=== PATIENT | female | born 1960 | race Caucasian/White ===

== ENCOUNTER 2017-06-21 16:49 | Emergency (ER) | payer OTHER | END 2017-06-21 18:16 | disposition home or self-care (01) | LOC: JERFT 16:49 | PROC: 3E0F7GC Introduction of Other Therapeutic Substance into Respiratory Tract, Via Natural or Artificial Opening (ICD-10-PCS; principal; 2017-06-21) | CPT/HCPCS: 99281-25; J7620 ==

== ENCOUNTER 2018-02-20 19:44 | Emergency (ER) | payer OTHER ==
[2018-02-20 19:59] VITALS: BP 149/84; PULSE 69; TEMP 97.9; BMI 22.6
[2018-02-20] MEDS ORDERED: predniSONE 20 MG TABLET (UD) PO ONE (21:48)
--- NOTE | 2018-02-20 21:48 | PDOC ---
History of Present Illness - General Chief Complaint: Asthma Stated Complaint: S.O.B Time Seen by Provider: 02/20/18 21:29 History Source: Patient - History of Present Illness Initial Comments: 02/20/18 22:38 57 year old female Wheezing and cough for 2 days frequently using asthma pump at home with no relief in wheezing. Denies fevers/chills, NVD, abdominal pain, urinary symptoms Past History - Past Medical History Allergies/Adverse Reactions: Allergies Allergy/AdvReac Type Severity Reaction Status Date / Time Penicillins Allergy Verified 02/20/18 19:59 Home Medications: Ambulatory Orders Albuterol Sulfate Inhaler - [Ventolin HFA Inhaler -] 2 inh IH Q4H PRN #1 inh Albuterol Sulfate Inhaler - [Ventolin HFA Inhaler -] 1 - 2 inh PO Q4H #1 inhaler 02/20/18 Prednisone [Prednisone 50 MG TABLETS] 50 mg PO DAILY #4 tablet 02/20/18 Asthma: Yes CVA: No COPD: No DVT: No - Immunization History Immunization Up to Date: Yes - Suicide/Smoking/Psychosocial Hx Smoking Status: No Smoking History: Never smoked Number of Cigarettes Smoked Daily: 0 Hx Alcohol Use: No Drug/Substance Use Hx: No Substance Use Type: None *Physical Exam - Vital Signs Last Vital Signs Temp Pulse Resp BP Pulse Ox 97.9 F 69 18 149/84 97 02/20/18 19:56 02/20/18 19:56 02/20/18 19:56 02/20/18 19:56 02/20/18 19:56 - Physical Exam General Appearance: Yes: Appropriately Dressed Respiratory/Chest: positive: Wheezing Moderate Sedation - Procedure Monitoring Vital Signs: Procedure Monitoring Vital Signs Temperature 97.9 F 02/20/18 19:56 Pulse Rate 69 02/20/18 19:56 Respiratory Rate 18 02/20/18 19:56 Blood Pressure 149/84 02/20/18 19:56 O2 Sat by Pulse Oximetry (%) 97 02/20/18 19:56 Medical Decision Making - Medical Decision Making 02/20/18 22:47 improved aeration *DC/Admit/Observation/Transfer Diagnosis at time of Disposition: Asthma exacerbation Qualifiers: Asthma severity: mild Asthma persistence: intermittent Qualified Code(s): J45.21 - Mild intermittent asthma with (acute) exacerbation - Discharge Dispostion Disposition: HOME - Prescriptions Prescriptions: Albuterol Sulfate Inhaler - [Ventolin HFA Inhaler -] 1 - 2 inh PO Q4H #1 inhaler Prednisone [Prednisone 50 MG TABLETS] 50 mg PO DAILY #4 tablet - Referrals Referrals: Rach Ken [Primary Care Provider] - - Patient Instructions Printed Discharge Instructions: Asthma -- Adult Additional Instructions: you albuterol inhaler as prescribed take prednisone starting tomorrow Additional Instructions: * Please call your personal physician to report your Emergency Department visit and to report your progress, if any. * If there is no improvement in symptoms in 2 days call your physician. * Return to the Emergency Department for any worsening symptoms. - Post Discharge Activity
[2018-02-20] MEDS ORDERED: ALBUTEROL SO4 2.5/IPRATROPIUM 0.5 INH SOL 3 ML VIAL.NEB. NEB ONE (21:52)
[2018-02-20] MEDS ORDERED: predniSONE 20 MG TABLET (UD) ONE (21:52)
[2018-02-20] MEDS: ALBUTEROL SO4 2.5/IPRATROPIUM 0.5 INH SOL 3 ML VIAL.NEB. NEB SCH ×4 (21:55→22:48)
== END 2018-02-20 23:01 | disposition home or self-care (01) ==
LOC: JERFT 19:44
DX: J45.21 Mild intermittent asthma with (acute) exacerbation (principal)
CPT/HCPCS: 99281-25

== ENCOUNTER 2018-11-11 00:25 | Emergency (ER) | payer OTHER ==
[2018-11-11 01:05] VITALS: TEMP 98; BMI 21.9
[2018-11-11] MEDS ORDERED: ALBUTEROL SO4 2.5/IPRATROPIUM 0.5 INH SOL 3 ML VIAL.NEB. NEB ONE ×2 (01:09→01:15)
--- NOTE | 2018-11-11 01:15 | PDOC ---
Attending Attestation - Resident Resident Name: Katie Morales S - ED Attending Attestation I have performed the following: I have examined & evaluated the patient, The case was reviewed & discussed with the resident, I agree w/resident's findings & plan - HPI HPI: 11/11/18 01:25 see resident hpi - Physicial Exam PE: 11/11/18 01:25 GENERAL: mild dsitress HEAD: No signs of trauma NECK: Normal ROM, LUNGS:. inc work of breathing with exp wheezing b/l HEART: Regular rate and rhythm, ABDOMEN: Soft, nondistended CHEST WALL: NEUROLOGICAL: Alert, SKIN: Warm, Dry - Medical Decision Making 11/11/18 01:27 58-year-old female with history of asthma now wheezing Steroids and DuoNeb's administered Plan for chest x-ray labs EKG and observation
[2018-11-11] MEDS ORDERED: predniSONE 20 MG TABLET (UD) PO ONE (01:20)
[2018-11-11] MEDS ORDERED: predniSONE 20 MG TABLET (UD) ONE (01:22)
--- NOTE | 2018-11-11 01:36 | PDOC ---
History of Present Illness - General Chief Complaint: Asthma Stated Complaint: ASTHMA Time Seen by Provider: 11/11/18 01:14 - History of Present Illness Initial Comments: 11/11/18 01:31 58 y/o/f here with PMHx of asthma here for SOB that started this afternoon. Patient states she had a similar episode last week and her PCP Dr. Ken prescribed 5 days of Prednisone which she completed on Thursday. She states she has many allergies and sometimes gets an asthma flareup. She used her Ventolin inhaler at home without significant improvement. She denies any chest pain, abd pain, fever, cough, dysuria, or other symptoms. Patient denies ever being admitted for asthma exacerbation and denies any history of intubation. PMHx: asthma SHx: Hysterectomy, sinus surgery 10 years ago Social: denies alcohol and tobacco use Past History - Past Medical History Allergies/Adverse Reactions: Allergies Allergy/AdvReac Type Severity Reaction Status Date / Time Penicillins Allergy Verified 11/11/18 01:04 Home Medications: Ambulatory Orders Albuterol Sulfate Inhaler - [Ventolin HFA Inhaler -] 2 inh IH Q4H PRN #1 inh Albuterol Sulfate Inhaler - [Ventolin HFA Inhaler -] 1 - 2 inh PO Q4H #1 inhaler 02/20/18 Prednisone [Prednisone 50 MG TABLETS] 50 mg PO DAILY #4 tablet 02/20/18 predniSONE [Deltasone -] 40 mg PO DAILY #5 tablet 11/11/18 Asthma: Yes CVA: No COPD: No DVT: No - Immunization History Immunization Up to Date: Yes - Suicide/Smoking/Psychosocial Hx Smoking Status: No Smoking History: Never smoked Number of Cigarettes Smoked Daily: 0 Hx Alcohol Use: No Drug/Substance Use Hx: No Substance Use Type: None Review of Systems - Review of Systems Constitutional: No: Chills, Fever HEENTM: No: Nose Congestion Respiratory: Yes: Shortness of Breath, Wheezing Cardiac (ROS): No: Chest Pain, Lightheadedness ABD/GI: No: Diarrhea, Nausea, Vomiting : No: Dysuria Musculoskeletal: No: Back Pain Integumentary: No: Rash Neurological: No: Headache, Dizziness Endocrine: No: Excessive Sweating *Physical Exam - Vital Signs Last Vital Signs Temp Pulse Resp BP Pulse Ox 98.0 F 74 22 H 157/80 96 11/11/18 01:03 11/11/18 01:03 11/11/18 01:03 11/11/18 01:03 11/11/18 01:03 - Physical Exam General Appearance: Yes: Nourished, Appropriately Dressed, Mild Distress HEENT: positive: EOMI, HEYDI, Normal Voice, Symmetrical Neck: positive: Trachea midline, Supple. negative: Lymphadenopathy (R), Lymphadenopathy (L) Respiratory/Chest: positive: Wheezing (wheezing bilaterally) Cardiovascular: positive: Regular Rhythm, Regular Rate, S1, S2 Gastrointestinal/Abdominal: positive: Soft. negative: Distended, Guarding Extremity: positive: Normal Capillary Refill Integumentary: positive: Normal Color Neurologic: positive: Fully Oriented, Alert, Motor Strength 06/27 ED Treatment Course - LABORATORY CBC & Chemistry Diagram: 11/11/18 01:50 11/11/18 01:50 - RADIOLOGY Radiology Studies Ordered: Category Date Time Status CHEST PA & LAT [RAD] Stat Radiology 11/11/18 01:27 Ordered - Medications Given in the ED: ED Medications Discontinued Medications Generic Name Dose Route Start Last Admin Trade Name Joe PRN Reason Stop Dose Admin Albuterol/Ipratropium 3 amp 11/11/18 01:09 11/11/18 01:20 Duoneb - NEB 11/11/18 01:10 3 amp ONCE ONE Administration Prednisone 60 mg 11/11/18 01:20 11/11/18 01:26 Deltasone - PO 11/11/18 01:21 60 mg ONCE ONE Administration Medical Decision Making - Medical Decision Making 11/11/18 01:43 -58 y/o/f here with PMHx of asthma here for SOB that started this afternoon. Patient states she had a similar episode last week and her PCP Dr. Ken prescribed 5 days of Prednisone which she completed on Thursday. -Workup with CBC, CMP, trops, CXR, EKG. -3 amps of duonebs and 60mg of Prednisone given for symptom management. -Patient feeling better after initial duoneb. wheezing decreased on exam. 11/11/18 02:01 -On reassessment patient is feeling much better. Minimal wheezing heard on both lung bases. -EKG reviewed, normal sinus rhythm. No acute ischemic changes. 11/11/18 02:25 -CXR reviewed, no acute pathology noted. -Albuterol nebulizer ordered for further improvement in wheezing. -Will likely discharge patient after reassessment. 11/11/18 02:35 -Patient no longer wheezing on exam and states that she feels much better. -Will discharge patient home with prescription of prednisone for 5 days and follow up instructions. *DC/Admit/Observation/Transfer Diagnosis at time of Disposition: Asthma exacerbation Qualifiers: Asthma severity: moderate Asthma persistence: unspecified Qualified Code(s): J45.901 - Unspecified asthma with (acute) exacerbation - Discharge Dispostion Disposition: HOME Condition at time of disposition: Improved - Prescriptions Prescriptions: predniSONE [Deltasone -] 40 mg PO DAILY #5 tablet - Referrals Referrals: Rach Ken [Primary Care Provider] - - Patient Instructions Printed Discharge Instructions: Asthma -- Adult Additional Instructions: If you worsening difficulty breathing, chest pain, fever, shortness of breath or other concerning symptoms please return to the ER. Please follow up with your primary care doctor within the next week. Please milk pickup driver your prescription and take as directed. Print Language: WELSH - Post Discharge Activity
[2018-11-11 01:58] LABS: HEMATOCRIT 40.3 % (32.4-45.2); HEMOGLOBIN 13.2 GM/dL (10.7-15.3); MCH 27.6 pg (25.7-33.7); MCHC 32.6 g/dl (32.0-36.0); MEAN CELL VOLUME 84.4 fl (80-96); MEAN PLT VOLUME 7.8 fl (7.5-11.1); PLATELET COUNT 288 K/MM3 (134-434); RBC 4.77 M/mm3 (3.60-5.2); RDW 14.1 % (11.6-15.6); WHITE BLOOD COUNT 9.6 K/mm3 (4.0-10.0)
[2018-11-11] MEDS ORDERED: ALBUTEROL SO4 0.083% IH SOL 2.5 MG/3 ML VIAL.NEB. NEB ONE ×2 (02:17→02:18)
[2018-11-11 02:19] LABS: ALBUMIN 3.9 g/dl (3.4-5.0); BILIRUBIN,TOTAL 0.3 mg/dL (0.2-1); BLOOD UREA NITROGEN 20.2 mg/dL (7-18); CREATININE 0.8 mg/dL (0.55-1.3); POTASSIUM 3.9 mmol/L (3.5-5.1)
[2018-11-11 02:41] VITALS: BP 123/65; PULSE 79
--- NOTE | 2018-11-11 14:04 | EKG ---
Test Reason : Blood Pressure : / mmHG Vent. Rate : 070 BPM Atrial Rate : 070 BPM P-R Int : 136 ms QRS Dur : 068 ms QT Int : 424 ms P-R-T Axes : 072 056 032 degrees QTc Int : 457 ms NORMAL SINUS RHYTHM NORMAL ECG WHEN COMPARED WITH ECG OF 14-JAN-2012 07:34, NO SIGNIFICANT CHANGE WAS FOUND Confirmed by MAGEN CODY MD ([id number]) on 11/11/2018 2:03:47 PM Referred By: Confirmed By:MAGEN CODY MD
== END 2018-11-11 02:55 | disposition home or self-care (01) ==
LOC: JER 00:25
PROC: 3E0F7GC Introduction of Other Therapeutic Substance into Respiratory Tract, Via Natural or Artificial Opening (ICD-10-PCS; principal; 2018-11-11)
PROC: 3E0F7GC Introduction of Other Therapeutic Substance into Respiratory Tract, Via Natural or Artificial Opening (ICD-10-PCS; 2018-11-11)
DX: J45.901 Unspecified asthma with (acute) exacerbation (principal)
CPT/HCPCS: 36415; 71046-TC-FY; 80053; 82550; 82553; 84484; 85027; 93005; 93010; 99283-25

== ENCOUNTER 2019-02-20 23:54 | Emergency (ER) | payer OTHER ==
[2019-02-21 00:03] VITALS: TEMP 97.4
[2019-02-21 02:06] VITALS: BP 148/72; BMI 22.4
[2019-02-21] MEDS ORDERED: ALBUTEROL SO4 2.5/IPRATROPIUM 0.5 INH SOL 3 ML VIAL.NEB. NEB ONE ×2 (02:36→03:16)
--- NOTE | 2019-02-21 03:21 | PDOC ---
Attending Attestation - Resident Resident Name: Oziel Flores - ED Attending Attestation I have performed the following: I have examined & evaluated the patient, The case was reviewed & discussed with the resident, I agree w/resident's findings & plan - HPI HPI: 02/21/19 04:31 see resident hpi - Physicial Exam PE: 02/21/19 04:31 agree with resident exam - Medical Decision Making 02/21/19 04:32 58-year-old female with history of asthma complaining of wheezing Unfortunately patient is not able to take steroids because of upcoming allergy testing She is improved after duo nebs in the emergency department A chest x-ray and labs as well as EKG will be obtained On reevaluation she is feeling much better and ready to go home
[2019-02-21 04:11] LABS: EOS % 11.7 % (0-4.5); HEMATOCRIT 41.2 % (32.4-45.2); HEMOGLOBIN 13.4 GM/dL (10.7-15.3); LYMPH % 34.2 % (8-40); MCHC 32.5 g/dl (32.0-36.0); MEAN CELL VOLUME 82.9 fl (80-96); MEAN PLT VOLUME 8.2 fl (7.5-11.1); MONO % 8.5 % (3.8-10.2); NEUT % 44.6 % (42.8-82.8); PLATELET COUNT 263 K/MM3 (134-434); RBC 4.97 M/mm3 (3.60-5.2); RDW 13.9 % (11.6-15.6); WHITE BLOOD COUNT 7.7 K/mm3 (4.0-10.0)
[2019-02-21 04:34] LABS: ALK PHOS 117 U/L (45-117); ANION GAP 7 MMOL/L (8-16); BILIRUBIN,TOTAL 0.2 mg/dL (0.2-1); BLOOD UREA NITROGEN 20.8 mg/dL (7-18); CALCIUM 9.4 mg/dL (8.5-10.1); CHLORIDE 106 mmol/L (98-107); CO2 27 mmol/L (21-32); CREATININE 0.7 mg/dL (0.55-1.3); GLUCOSE,RANDOM 109 mg/dL (74-106); SGOT/AST 38 U/L (15-37); SGPT/ALT 41 U/L (13-61); SODIUM 139 mmol/L (136-145); TOT PROT 7.2 g/dl (6.4-8.2)
--- NOTE | 2019-02-21 05:20 | PDOC ---
History of Present Illness - General Chief Complaint: Respiratory Stated Complaint: CONGESTION Time Seen by Provider: 02/21/19 03:20 History Source: Patient Exam Limitations: No Limitations - History of Present Illness Initial Comments: 58 y/o F, pmh of asthma and multiple allergies, presents to the ED c/o of shortness of breath of 2 day duration that has worsened since onset prompting her to come the ED. She has been in the ED in the past for SOB and was treated. She reports hx of multiple allergies and has an appt with an business applications specialist next Thursday and was told not to use any pills or any other medications prior to her medical education coordinator appt. She uses albuterol inhaler but this asthma episode was unresponsive to her albuterol pump. Denies f/c/n/v/d/chest pain, abdominal pain. 02/21/19 05:21 Is this a multiple visit Asthma Patient?: Yes Severity: mild Associated Symptoms: reports: denies symptoms, shortness of breath. denies: chest pain, cough, diaphoresis, headaches, nausea/vomiting Past History - Travel Traveled outside of the country in the last 30 days: No Close contact w/someone who was outside of country & ill: No - Past Medical History Allergies/Adverse Reactions: Allergies Allergy/AdvReac Type Severity Reaction Status Date / Time Penicillins Allergy Verified 02/21/19 02:06 Home Medications: Ambulatory Orders Albuterol Sulfate Inhaler - [Ventolin HFA Inhaler -] 2 inh IH Q4H PRN #1 inh Albuterol Sulfate Inhaler - [Ventolin HFA Inhaler -] 1 - 2 inh PO Q4H #1 inhaler 02/20/18 Prednisone [Prednisone 50 MG TABLETS] 50 mg PO DAILY #4 tablet 02/20/18 predniSONE [Deltasone -] 40 mg PO DAILY #5 tablet 11/11/18 Albuterol Sulfate Inhaler - [Ventolin HFA Inhaler -] 2 inh PO Q4H #1 inh Asthma: Yes CVA: No COPD: No DVT: No - Immunization History Immunization Up to Date: Yes - Psycho Social/Smoking Cessation Hx Smoking Status: No Smoking History: Never smoked Number of Cigarettes Smoked Daily: 0 Hx Alcohol Use: No Drug/Substance Use Hx: No Substance Use Type: None Review of Systems - Review of Systems Able to Perform ROS?: Yes Is the patient limited Ukrainian proficient: No Constitutional: Yes: Symptoms Reported, Weight Stable. No: Chills, Diaphoresis , Fever, Loss of Appetite, Unintentional Wgt. Loss HEENTM: Yes: Symptoms Reported. No: Eye Pain, Blurred Vision Respiratory: Yes: Symptoms reported, Shortness of Breath, Wheezing. No: Cough, Orthopnea, Productive cough Cardiac (ROS): Yes: Symptoms Reported. No: Chest Pain, Edema, Irregular Heart Rate ABD/GI: Yes: Symptoms Reported. No: Abdominal Distended, Constipated, Diarrhea , Nausea, Vomiting Integumentary: No: Dryness Neurological: Yes: Symptoms reported. No: Headache, Numbness *Physical Exam - Vital Signs Last Vital Signs Temp Pulse Resp BP Pulse Ox 97.4 F L 70 19 148/70 97 02/21/19 00:01 02/21/19 00:01 02/20/19 23:55 02/21/19 00:01 02/21/19 00:01 - Physical Exam General Appearance: Yes: Nourished, Appropriately Dressed, Mild Distress HEENT: positive: EOMI, HEYDI, Normal ENT Inspection, Pharynx Normal Neck: positive: Trachea midline, Normal Thyroid, Supple Respiratory/Chest: positive: Wheezing. negative: Lungs Clear, Respiratory Distress, Accessory Muscle Use, Crackles, Rhonchi, Stridor Vascular Pulses: Dorsalis-Pedis (R): 2+, Doralis-Pedis (L): 2+ Gastrointestinal/Abdominal: positive: Normal Bowel Sounds, Soft. negative: Distended, Guarding Neurologic: positive: Fully Oriented, Alert, Normal Mood/Affect ED Treatment Course - LABORATORY CBC & Chemistry Diagram: 02/21/19 04:00 02/21/19 04:00 - ADDITIONAL ORDERS Additional order review: Laboratory Results 02/21/19 04:00 Sodium 139 Potassium 4.0 Chloride 106 Carbon Dioxide 27 Anion Gap 7 L BUN 20.8 H Creatinine 0.7 Est GFR (CKD-EPI)AfAm 111.47 Est GFR (CKD-EPI)NonAf 96.18 Random Glucose 109 H Calcium 9.4 Total Bilirubin 0.2 AST 38 H ALT 41 Alkaline Phosphatase 117 Creatine Kinase 719 H Troponin I < 0.02 Total Protein 7.2 Albumin 4.0 02/21/19 04:00 RBC 4.97 MCV 82.9 MCHC 32.5 RDW 13.9 MPV 8.2 Neutrophils % 44.6 Lymphocytes % 34.2 D Monocytes % 8.5 Eosinophils % 11.7 H Basophils % 1.0 - RADIOLOGY Radiology Studies Ordered: Category Date Time Status CHEST PA & LAT [RAD] Stat Radiology 02/21/19 03:47 Taken - Medications Given in the ED: ED Medications Discontinued Medications Generic Name Dose Route Start Last Admin Trade Name Freq PRN Reason Stop Dose Admin Albuterol/Ipratropium 3 amp 02/21/19 02:36 02/21/19 03:21 Duoneb - NEB 02/21/19 02:37 3 amp ONCE ONE Administration Medical Decision Making - Medical Decision Making 58 y/o F, pmh of asthma and multiple allergies, presents to the ED c/o of shortness of breath of 2 day duration that has worsened since onset prompting her to come the ED #Asthma exacerbation- mild Albuterol nebs given x1- pt improved Wheezing improved CXR normal CBC and CMP normal trops negative EKG- NSR 02/21/19 05:25 Discharge - Discharge Information Problems reviewed: Yes Clinical Impression/Diagnosis: Asthma exacerbation Qualifiers: Asthma severity: mild Asthma persistence: intermittent Qualified Code(s): J45.21 - Mild intermittent asthma with (acute) exacerbation Condition: Improved Disposition: HOME - Admission No - Additional Discharge Information Prescriptions: Albuterol Sulfate Inhaler - [Ventolin HFA Inhaler -] 2 inh PO Q4H #1 inh - Follow up/Referral Referrals: Rach Ken [Primary Care Provider] - - Patient Discharge Instructions Patient Printed Discharge Instructions: DI for Asthma -- Adult Additional Instructions: You were seen in the Emergency Room for difficulty breathing While in the emergency room, we evaluated you with lab work, blood work and X rays of your chest. We found that your symptoms were caused by your Asthma. We treated you with medications and your symptoms improved significantly. Please ensure you take your Albuterol pump if your symptoms return Please take all your medications as prescribed Please follow up with your primary care physician in 1 week Return to the emergency room, if you experience worsening of your symptoms, fevers, shortness of breath, chest pain or worsening of any of your condition. - Post Discharge Activity
[2019-02-21 05:58] VITALS: PULSE 80
--- NOTE | 2019-02-21 11:19 | EKG ---
Test Reason : Blood Pressure : / mmHG Vent. Rate : 065 BPM Atrial Rate : 065 BPM P-R Int : 126 ms QRS Dur : 072 ms QT Int : 432 ms P-R-T Axes : 059 044 044 degrees QTc Int : 449 ms NORMAL SINUS RHYTHM NONSPECIFIC T WAVE ABNORMALITY ABNORMAL ECG WHEN COMPARED WITH ECG OF 11-NOV-2018 01:41, NO SIGNIFICANT CHANGE WAS FOUND Confirmed by COOPER BENDER MD ([id number]) on 02/21/2019 11:19:21 AM Referred By: Confirmed By:COOPER BENDER MD
== END 2019-02-21 06:01 | disposition home or self-care (01) ==
LOC: JER 23:54
PROC: 3E0F7GC Introduction of Other Therapeutic Substance into Respiratory Tract, Via Natural or Artificial Opening (ICD-10-PCS; principal; 2019-02-20)
DX: J45.21 Mild intermittent asthma with (acute) exacerbation (principal); Z88.0 Allergy status to penicillin
CPT/HCPCS: 36415; 71046-TC-FY; 80053; 82550; 82553; 84484; 85025; 93005; 93010; 99282-25

== ENCOUNTER 2022-02-13 04:23 | Day surgery (SDC) | payer OTHER ==
[2022-02-10 15:34] VITALS: BMI 22.4
[2022-02-13 08:55] VITALS: TEMP 98.2
[2022-02-13 11:34] VITALS: BP 119/67; PULSE 60; RESP 21
== END 2022-02-13 11:42 | disposition home or self-care (01) ==
LOC: JASU-ENDO 04:23
PROVIDERS: ATTEND Internal Medicine Gastroenterology
PROC: 0DB68ZX Excision of Stomach, Via Natural or Artificial Opening Endoscopic, Diagnostic (ICD-10-PCS; 2022-02-13)
PROC: 0DJD8ZZ Inspection of Lower Intestinal Tract, Via Natural or Artificial Opening Endoscopic (ICD-10-PCS; principal; 2022-02-13 09:45)
DX: Z12.11 Encounter for screening for malignant neoplasm of colon (principal); K64.8 Other hemorrhoids; K29.50 Unspecified chronic gastritis without bleeding; Z86.010 Personal history of colon polyps
CPT/HCPCS: 43239; G0105; 88305-TC; 88341-TC; 88342-TC

== ENCOUNTER 2024-02-20 14:05 | Emergency (ER) | payer OTHER ==
[2024-02-20 14:30] VITALS: BP 152/89; PULSE 72; RESP 16; TEMP 98; BMI 22.8
[2024-02-20] MEDS ORDERED: KETOROLAC TROMETHAMINE 30 MG/1 ML VIAL ONE (15:50)
[2024-02-20] MEDS ORDERED: LIDOCAINE VISCOUS 2% ORAL/TOP 15 ML UNIT-DOSE CUP ONE (15:50)
[2024-02-20] MEDS ORDERED: MAG HYDROX/AL HYDROX/SIMETH 30 ML UNIT-DOSE CUP ONE (15:51)
[2024-02-20] MEDS: KETOROLAC TROMETHAMINE 30 MG/1 ML VIAL IM ONE (15:55)
[2024-02-20] MEDS: LIDOCAINE VISCOUS 2% ORAL/TOP 15 ML UNIT-DOSE CUP MM ONE (15:56)
[2024-02-20] MEDS: MAG HYDROX/AL HYDROX/SIMETH -MYLANTA- ORAL SUSPENSION PO ONE (15:56)
== END 2024-02-20 17:21 | disposition home or self-care (01) ==
LOC: JER 14:05
DX: T17.308A Unspecified foreign body in larynx causing other injury, initial encounter (principal)
CPT/HCPCS: 71045-TC-FY; 99283-25

== ENCOUNTER → 2024-05-05 | Day surgery (SDC) | payer OTHER ==
[2024-04-27 08:46] VITALS: BMI 23.0
[2024-05-05 10:28] VITALS: RESP 17; TEMP 97.3
[2024-05-05 11:04] VITALS: BP 140/75; PULSE 60
== END | disposition home or self-care (01) ==
LOC: JASU-ENDO 07:12
PROVIDERS: ATTEND Internal Medicine Gastroenterology
PROC: 0DJ08ZZ Inspection of Upper Intestinal Tract, Via Natural or Artificial Opening Endoscopic (ICD-10-PCS; 2024-05-05)
PROC: 0DJD8ZZ Inspection of Lower Intestinal Tract, Via Natural or Artificial Opening Endoscopic (ICD-10-PCS; principal; 2024-05-05 10:00)
DX: Z12.11 Encounter for screening for malignant neoplasm of colon (principal); K44.9 Diaphragmatic hernia without obstruction or gangrene; Z86.0100 Personal history of colon polyps, unspecified; Z85.020 Personal history of malignant carcinoid tumor of stomach